=== PATIENT | female | born 2000 | race Caucasian/White ===

== ENCOUNTER 2021-06-08 14:17 | Emergency (ER) | payer OTHER ==
[~2021-06-08] VITALS: Ht 154.9 cm; Wt 73.5 kg
[2021-06-08 14:21] VITALS: BP 114/70
--- NOTE | 2021-06-08 14:30 | NUR ---
PA Nathan at bedside evaluating patient.
--- NOTE | 2021-06-08 14:35 | NUR ---
20 y/o female came in for c/o right arm pain radiates from hands to shoulders. Patient has pressure sensation comes and goes 8/10. Pain started last night. Patient denies overexertion, injury or lifting/pushing. Medical History: denies Allergy: penicillin (hives)
[2021-06-08] MEDS ORDERED: IBUPROFEN 600 MG TAB PO ONE (14:40)
[2021-06-08] MEDS ORDERED: NAPR-54 PO (14:51)
--- NOTE | 2021-06-08 15:01 | NUR ---
rt wrist velcro splint placed by Daniel Wills, verified by DYLAN Nathan.
[2021-06-08 15:09] VITALS: BP 114/70
--- NOTE | 2021-06-08 15:10 | NUR ---
Patient discharged with v/s stable. Written and verbal after care instructions given. Patient alert, oriented and verbalized understanding of instructions. Ambulatory with steady gait. All questions addressed prior to discharge. ID band removed. Patient advised to follow up with PMD. Rx of Naproxen given. Opportunity to ask questions provided and answered.
== END 2021-06-08 15:10 | disposition home or self-care (01) ==
LOC: MED 14:17
DX: M25.531 Pain in right wrist (principal); Z88.0 Allergy status to penicillin; Z79.899 Other long term (current) drug therapy
CPT/HCPCS: 99283

== ENCOUNTER 2021-12-15 12:34 | Emergency (ER) | payer OTHER ==
[~2021-12-15] VITALS: Ht 154.9 cm; Wt 65.8 kg
[~2021-12-15 12:34] MED LIST: NAPR-54 PO
[2021-12-15 13:03] VITALS: BP 124/67
--- NOTE | 2021-12-15 13:35 | NUR ---
AMBULATED TO BED 1
--- NOTE | 2021-12-15 13:45 | NUR ---
PT C/O LOWER ABDOMINAL PAIN RADIATING TO BACK SINCE THIS AM. C/O 12/22 PAIN APPEARS UNCOMFORTABLE. IV INSERTED TO FA #[id number]. PENDING ER MD HOYOS.
--- NOTE | 2021-12-15 14:40 | NUR ---
URINE DIPPED AND CHARTED
[2021-12-15] MEDS ORDERED: NACL 0.9% 1,000 ML IV ONE (15:10)
[2021-12-15 15:21] LABS: BASOPHILS % (AUTO) 0.3 % (0.0-2.0); EOSINOPHILS % (AUTO) 0.2 % (0.0-4.0); HEMATOCRIT 41.6 % (36-48); HEMOGLOBIN 14.4 g/dL (12.0-16.0); LYMPHOCYTES # (AUTO) 0.9 K/uL (2.5-16.5); LYMPHOCYTES % (AUTO) 9.5 % (20.5-51.1); MEAN CORPUSCULAR HEMOGLOBIN 30 pg (27-31); MEAN CORPUSCULAR HGB CONC 35 g/dL (33-37); MEAN CORPUSCULAR VOLUME 87.9 fL (80-94); MONOCYTES # (AUTO) 0.3 K/uL (0.8-1.0); MONOCYTES % (AUTO) 3.6 % (1.7-9.3); NEUTROPHILS # (AUTO) 8.1 K/uL (1.8-7.7); NEUTROPHILS % (AUTO) 86.4 % (42.2-75.2); PLATELET COUNT (AUTO) 281 K/uL (140-450); RED BLOOD CELL COUNT(AUTO) 4.73 MIL/uL (4.20-5.40); RED CELL DISTRIBUTION WIDTH 12.5 % (11.6-13.7); WHITE BLOOD COUNT (AUTO) 9.4 K/uL (4.8-10.8)
[2021-12-15] MEDS ORDERED: KETOROLAC 15 MG/ML VIAL IVP ONE (15:35)
[2021-12-15 15:36] LABS: ALBUMIN 4.1 g/dL (3.4-5.0); ANION GAP 15.5 (8-16); CARBON DIOXIDE 24.9 mmol/L (21-32); POTASSIUM 3.4 mmol/L (3.5-5.1)
--- NOTE | 2021-12-15 16:24 | NUR ---
PT BACK FROM CT
[2021-12-15 17:31] LABS: BILIRUBIN,URINE NEGATIVE (NEGATIVE); BLOOD, URINE 1+ (NEGATIVE); COLOR,URINE YELLOW (YELLOW); LEUKOCYTE ESTERASE ,URINE NEGATIVE (NEGATIVE); NITRITE, URINE NEGATIVE (NEGATIVE); UGLUCOSE NEGATIVE (NEGATIVE)
[2021-12-15 17:38] LABS: APPEARANCE,URINE CLOUDY (CLEAR)
[2021-12-15] MEDS ORDERED: IBUP-2213 PO (17:53)
[2021-12-15 17:56] LABS: RBC,URINE 0-5 /HPF (0-5); WBC,URINE 0-5 /HPF (0-5)
[2021-12-15 17:58] VITALS: BP 105/67
== END 2021-12-15 18:05 | disposition home or self-care (01) ==
LOC: MED 12:34
DX: N20.1 Calculus of ureter (principal); Z88.0 Allergy status to penicillin
CPT/HCPCS: 36415; 74177; 76856; 80053; 81001; 81025; 83690; 85025; 96361; 96374; 99285; J1885; J7030; Q9967